=== PATIENT | female | born 1960 | race Caucasian/White ===

== ENCOUNTER 2019-07-30 12:31 | Emergency (ER) | payer OTHER ==
[2019-07-30] MEDS ORDERED: LIDOCAINE 1% W/EPI 1:100,000 MDV 50 ML VIAL ONE (12:53)
[2019-07-30] MEDS ORDERED: TETANUS & DIPHTHERIA TOX,ADULT 0.5 ML VIAL ONE (13:31)
--- NOTE | 2019-07-30 13:39 | ER ---
Nurse's Notes [facility] Name: Ellen Helm Age: 58 yrs Sex: Female : 1960 Arrival Date: 07/30/2019 Time: 12:31 Bed 5 Private MD: Diagnosis: Laceration without foreign body of right forearm Presentation: 07/29 12:38 Chief complaint: Patient states: right inner wrist laceration while sharpening her sv knife that was cutting fish with. Coronavirus screen: Proceed with normal triage. Patient reports a cough. Patient denies shortness of breath or difficulty breathing. Patient denies measured and/or subjective temperature greater than 100.4F prior to today's visit. Patient denies travel on a cruise ship or to a country the [facility] currently lists as an affected area. Patient denies contact with known and/or suspected case of COVID-19. Pt has had a cough that has been ongoing for about a year and has been seeing her ENT fot it. Ebola Screen: No symptoms or risks identified at this time. Complicating Factors: There are no complicating factors for this patient. Initial Sepsis Screen: Does the patient meet any 2 criteria? No. Patient's initial sepsis screen is negative. Does the patient have a suspected source of infection? No. Patient's initial sepsis screen is negative. Risk Assessment: Do you want to hurt yourself or someone else? Patient reports no desire to harm self or others. Onset of symptoms was July 30, 2019. 12:38 Method Of Arrival: Ambulatory sv 12:38 Acuity: KEAGAN 3 sv Triage Assessment: 12:42 General: Appears in no apparent distress. comfortable, well developed, Behavior is sv calm, cooperative, appropriate for age. Pain: Denies pain. Neuro: Level of Consciousness is awake, alert, obeys commands, Oriented to person, place, time, situation, Moves all extremities. Full function Gait is steady, Speech is normal. Respiratory: Respiratory effort is even, unlabored, Respiratory pattern is regular, symmetrical. Derm: Skin is pink, warm \T\ dry. Injury Description: Laceration sustained to right wrist is contaminated, was sustained 30-60 minutes ago. is bleeding a small amount. Historical: - Allergies: 12:40 Amoxicillin; sv - PMHx: 12:40 None; sv - PSHx: 12:40 Carpal Tunnel Repair; Hip; lap band; sv - Immunization history:: Adult Immunizations up to date, Last tetanus immunization: < 10 years ago. - Social history:: Smoking status: Patient denies any tobacco usage or history of. Patient uses alcohol, occasionally. Screenin:41 Abuse screen: Denies threats or abuse. Denies injuries from another. Nutritional sv screening: No deficits noted. Tuberculosis screening: No symptoms or risk factors identified. Fall Risk None identified. Assessment: 12:51 Reassessment: Patient appears in no apparent distress at this time. No changes from sv previously documented assessment. Patient and/or family updated on plan of care and expected duration. Pain level reassessed. Patient is alert, oriented x 3, equal unlabored respirations, skin warm/dry/pink. 13:00 Musculoskeletal: Circulation, motion, and sensation intact. Range of motion: intact in bp all extremities. Injury Description: Laceration sustained to right arm. 13:48 Reassessment: PT D/C HOME AMBULATORY, DX WITH LACERATION WITHOUT FOREIGN BODY. bp Vital Signs: 12:38 BP 133 / 81; Pulse 96; Resp 20; Temp 97; Pulse Ox 97% ; Weight 99.79 kg; Height 5 ft. 5 sv in. (165.10 cm); Pain 0/10; 12:38 Body Mass Index 36.61 (99.79 kg, 165.10 cm) sv ED Course: 12:31 Patient arrived in ED. am2 12:33 Gayathri Portillo, GENA is Primary Nurse. sv 12:38 Jai Sarkar PA is PHCP. cp 12:38 Anurag Pimentel MD is Attending Physician. cp 12:39 Triage completed. sv 12:41 Arm band placed on. sv 12:41 Patient has correct armband on for positive identification. Bed in low position. Call sv light in reach. Pulse ox on. NIBP on. Door closed. Head of bed elevated. 13:49 Assist provider with laceration repair on right arm that was between 2.6 to 7.5 cm bp using sutures. Set up tray. Performed by Jai VIEIRA Dressed with [place], Patient tolerated well. Patient did not have IV access during this emergency room visit. Administered Medications: 13:00 Drug: Lidocaine-Epinephrine -1%: (1:100,000) 10 ml Volume: 20 ml; Route: Infiltration; bp 13:30 Drug: Tetanus-Diphtheria Toxoid Adult 0.5 ml {Equine Intern: [employer]. Exp: bp 06/03/2021. Lot #: [id number]. } Route: IM; Site: right deltoid; 13:36 Follow up: Response: No adverse reaction bp Outcome: 13:39 Discharge ordered by . cp 13:50 Discharged to home ambulatory. bp 13:50 Condition: stable 13:50 Discharge instructions given to patient, Instructed on discharge instructions, follow up and referral plans. medication usage, wound care, Demonstrated understanding of instructions, follow-up care, medications, wound care, Prescriptions given X 1. 13:51 Patient left the ED. bp Signatures: Gayathri Portillo, RN RN Jai Jorgensen PA PA cp Moreno, Amanda am2 Peltier, Brian, RN RN bp
--- NOTE | 2019-07-30 13:39 | EDPHYS ---
Physician Documentation [facility] Name: Ellen Helm Age: 58 yrs Sex: Female : 1960 Arrival Date: 07/30/2019 Time: 12:31 Bed 5 Private MD: ED Physician Anurag Pimentel HPI: 07/29 12:50 This 58 yrs old Female presents to ER via Ambulatory with complaints of cp Laceration. 12:50 The patient has a laceration related to: knife used to clean fish The injury was cp accidental. The laceration(s) is(are) located on the volar surface right forearm. 12:50 Onset: The symptoms/episode began/occurred just prior to arrival. Associated signs and cp symptoms: Pertinent negatives: heavy bleeding, numbness distal to injury, suspected foreign body. Historical: - Allergies: 12:40 Amoxicillin; sv - PMHx: 12:40 None; sv - PSHx: 12:40 Carpal Tunnel Repair; Hip; lap band; sv - Immunization history:: Adult Immunizations up to date, Last tetanus immunization: < 10 years ago. - Social history:: Smoking status: Patient denies any tobacco usage or history of. Patient uses alcohol, occasionally. ROS: 13:00 Skin: Positive for laceration(s), of the volar surface right forearm. cp 13:00 Neuro: Negative for numbness, tingling. cp 13:00 All other systems are negative. Exam: 13:05 Constitutional: The patient appears in no acute distress, alert, awake, well developed, cp well nourished. 13:05 Musculoskeletal/extremity: ROM: full active range of motion, in the right hand, cp Perfusion: the extremity is normally perfused throughout, Sensation intact. Tendon exam: specific tendon testing normal through active and passive range of motion 13:05 Skin: injury, laceration(s), the wound is approximately 5 cm(s), of the volar surface of right forearm, that can be described as clean, linear, with mild bleeding. Vital Signs: 12:38 BP 133 / 81; Pulse 96; Resp 20; Temp 97; Pulse Ox 97% ; Weight 99.79 kg; Height 5 ft. 5 sv in. (165.10 cm); Pain 0/10; 12:38 Body Mass Index 36.61 (99.79 kg, 165.10 cm) sv Laceration: 13:41 Wound Repair of 5cm ( 2.0in ) subcutaneous laceration to right forearm. Linear shaped.. cp Distal neuro/vascular/tendon intact. Anesthesia: Wound infiltrated with 6 mls of 1% lidocaine w/ Epi. Wound prep: Moderate cleansing by me, Wound irrigation by me. Skin closed with 6 4-0 Prolene using simple sutures and sterile technique. Dressed with Bacitracin, 4x4's, Kerlix. Patient tolerated well. MDM: 12:43 Patient medically screened. cp 13:00 Differential diagnosis: superficial laceration, tendon injury, vascular injury. cp 13:39 Data reviewed: vital signs, nurses notes, and as a result, I will discharge patient. cp 13:39 Counseling: I had a detailed discussion with the patient and/or guardian regarding: the cp historical points, exam findings, and any diagnostic results supporting the discharge/admit diagnosis, to return to the emergency department if symptoms worsen or persist or if there are any questions or concerns that arise at home. Response to treatment: the patient's symptoms have markedly improved after treatment. 07/29 12:45 Order name: Dressing - Wound; Complete Time: 13:48 cp 07/29 12:45 Order name: Gloves, Sterile; Complete Time: 12:51 cp 07/29 12:45 Order name: Setup Suture Tray; Complete Time: 12:51 cp 07/29 13:37 Order name: Wound dressing; Complete Time: 13:48 cp Administered Medications: 13:00 Drug: Lidocaine-Epinephrine -1%: (1:100,000) 10 ml Volume: 20 ml; Route: Infiltration; bp 13:30 Drug: Tetanus-Diphtheria Toxoid Adult 0.5 ml {Frank[employer]ter Inspector: [employer]. Exp: bp 06/03/2021. Lot #: [id number]. } Route: IM; Site: right deltoid; 13:36 Follow up: Response: No adverse reaction bp Disposition: 13:46 Chart complete. cp 18:49 Co-signature as Attending Physician, Anurag Pimentel MD I agree with the assessment and kdr plan of care. Disposition: 07/30/19 13:39 Discharged to Home. Impression: Laceration without foreign body of right forearm. - Condition is Stable. - Discharge Instructions: Laceration Care, Adult. - Prescriptions for Doxycycline Hyclate 100 mg Oral Tablet - take 1 tablet by ORAL route every 12 hours; 20 tablet. - Medication Reconciliation Form, Thank You Letter, Antibiotic Education, Prescription Opioid Use form. - Follow up: Private Physician; When: 7 - 10 days; Reason: Staple/Suture removal. - Problem is new. - Symptoms have improved. Signatures: Gayathri Portillo RN RN sv Anurag Pimentel MD MD kdr Jai Sarkar PA PA cp Korey Ko RN RN bp Corrections: (The following items were deleted from the chart) 13:51 13:39 07/30/2019 13:39 Discharged to Home. Impression: Laceration without foreign body bp of right forearm. Condition is Stable. Forms are Medication Reconciliation Form, Thank You Letter, Antibiotic Education, Prescription Opioid Use. Follow up: Private Physician; When: 7 - 10 days; Reason: Staple/Suture removal. Problem is new. Symptoms have improved. cp
[2019-07-30 13:58] VITALS: BP 133/81; TEMP 97; O2SAT 97
== END 2019-07-30 13:51 | disposition home or self-care (01) ==
LOC: ER 12:31
PROC: 0JQG0ZZ Repair Right Lower Arm Subcutaneous Tissue and Fascia, Open Approach (ICD-10-PCS; principal; 2019-07-30)
DX: S51.811A Laceration without foreign body of right forearm, initial encounter (principal); W26.0XXA Contact with knife, initial encounter; Z23 Encounter for immunization
CPT/HCPCS: 90471; 90714; 99284